=== PATIENT | female | born 1970 | race Caucasian/White ===

== ENCOUNTER → 2017-04-21 | Outpatient (CLI) | payer BC | LOC: FIMAGING 15:22 | PROVIDERS: ATTEND Obstetrics & Gynecology | DX: Z12.31 Encounter for screening mammogram for malignant neoplasm of breast (principal) | CPT/HCPCS: G0202 ==

== ENCOUNTER → 2018-06-13 | Outpatient (CLI) | payer BC | LOC: FIMAGING 15:40 | PROVIDERS: ATTEND Nurse Practitioner Women's Health | DX: Z12.31 Encounter for screening mammogram for malignant neoplasm of breast (principal) ==

== ENCOUNTER → 2018-06-25 | Outpatient (CLI) | payer BC | LOC: FIMAGING 10:18 | PROVIDERS: ATTEND Nurse Practitioner Women's Health | DX: N60.01 Solitary cyst of right breast (principal) ==

== ENCOUNTER → 2018-12-27 | Outpatient (CLI) | payer BC | LOC: FIMAGING 11:39 | PROVIDERS: ATTEND Nurse Practitioner Women's Health | DX: R92.2 Inconclusive mammogram (principal) ==